=== PATIENT | female | born 2000 | race Caucasian/White ===

== ENCOUNTER 2022-05-04 12:26 | Outpatient (CLI) | payer OTHER, MEDICAID, SELFPAY | END 2022-05-04 12:27 | disposition home or self-care (01) | PROVIDERS: PCP Family Medicine; Visit Provider Registered Nurse | DX: R53.83 Other fatigue (principal) | CPT/HCPCS: 84443 ==

== ENCOUNTER 2022-05-11 08:47 | Outpatient (CLI) | payer OTHER, MEDICAID, SELFPAY ==
--- NOTE | 2022-05-11 09:15 | CRLHL7_ITS ---
For Patients: As a result of the Cures Act, medical imaging exams and procedure reports are released immediately into your electronic medical record. You may view this report before your referring provider. If you have questions, please contact your health care provider. LEFT BREAST ULTRASOUND CLINICAL HISTORY: LEFT breast lump. COMPARISON: None. TECHNIQUE: Real-time ultrasound imaging of LEFT breast with imaging documentation. FINDINGS: Targeted sonogram to the area of concern LEFT breast 9 o`clock 4 cm from the nipple and 10 o`clock 12 cm from nipple performed. Normal breast tissue. No solid masses. No suspicious findings. No fluid collection or abscess. No fibrocystic change. IMPRESSION: Negative targeted ultrasound LEFT breast. RECOMMENDATIONS: Clinical follow-up. Age appropriate screening mammography. Results and recommendations were discussed with the patient at the time of the exam. BI-RADS Category 2: Benign A lay language report of this examination will be provided to the patient. Dictated by Ashok Lee MD @ 05/11/2022 12:00:18 PM/ruben DIANA/Dictated by: Ashok Lee MD @ 05/11/2022 12:00:00 PM (Electronically Signed)
== END 2022-05-11 08:48 | disposition home or self-care (01) ==
PROVIDERS: PCP Family Medicine; Visit Provider Registered Nurse
DX: N63.25 Unspecified lump in the left breast, overlapping quadrants (principal)
CPT/HCPCS: 76642